=== PATIENT | female | born 1970 | race Caucasian/White ===

== ENCOUNTER → 2016-11-17 | Outpatient (CLI) | payer MEDICAID ==
[~2016-11-17] MED LIST: ASPIRIN 32325 MG/TAB PO; FLEXERIL 1010 MG/TAB PO; HCTZ 25MG TAB25 MG PO; KLOR-CON M2020 MEQ PO; LIPITOR20 MG PO; LOPRESSOR 225 MG/TAB PO; NORCO 325 MG-7.1 TAB PO; PRILOSEC 20MG20 MG PO; ZESTRIL 20MG TA20 MG PO
== END ==
LOC: MC.RAD 09:57
DX: N63 Unspecified lump in breast (principal)

== ENCOUNTER → 2017-08-24 | Outpatient (CLI) | payer OTHER | LOC: COL.PUL 08:34 | DX: J44.9 Chronic obstructive pulmonary disease, unspecified (principal) ==